=== PATIENT | male | born 1960 | race Caucasian/White ===

== ENCOUNTER 2016-07-15 06:43 | Emergency (ER) | payer OTHER ==
[~2016-07-15] VITALS: Ht 170.2 cm; Wt 96.2 kg
[~2016-07-15 06:43] MED LIST: ELIMITE5% TOP; IVERMECTIN TOP
[2016-07-15] MEDS ORDERED: METHADONE HCL10 M1 PO (07:00)
--- NOTE | 2016-07-15 07:19 | ED CARDIAC/CP/PALPITATIONS ---
History of Present Illness General Chief Complaint: Chest Pain Stated Complaint: "IM HAVING SEVERE CHEST PAIN" Source: patient, family, old records Exam Limitations: no limitations Vital Signs & Intake/Output Vital Signs & Intake/Output Vital Signs Date Time Temp Pulse Resp B/P Pulse O2 O2 Flow FiO2 Ox Delivery Rate 07/15 0809 93 07/15 0658 89 22 122/65 96 Room Air 07/15 0657 98.8 86 18 122/65 95 Room Air Allergies Coded Allergies: NO KNOWN ALLERGIES (07/15/16) Reconcile Medications Albuterol Sulfate (Proair Hfa) 90 MCG HFA.AER.AD 2 PUF INH Q4-6 PRN PRN PNEUMONIA Azithromycin (Zithromax) 250 MG TABLET 1 DP PO AD PNEUMONIA 2 the first day followed by 1 for days 2-5 Ivermectin (Sklice) 0.5% LOT 0 TOP SEE ADMIN CRITERIA lice Apply to hair, leave on for 10 minutes then wash. Repeat in 1 week. Methadone Hydrochloride (Methadone HCl) 10 MG TABLET 90 MG PO DAILY MMTP ( Reported) Permethrin (Elimite) 5% CRE 1 DAVID TOP ONCE SCABIES APPLY FROM NECK DOWN, RINSE OFF AFTER 8 HOURS. YOU CAN ALSO USE SHAMPOO, LEAVE IN FOR 10 MIN THEN RINSE OUT. Triage Note: PER PT 2 WEEKS OF CHEST PAIN WORSE WHEN LYING ON RT SIDE AT NIGHT "FEELS LIKE A BROKEN RIB" DENIES TRAUMA OR FALL. PT ON MMTP 90 MG LAST DOSED THIS AM AT [facility], [place], [facility] NO OTHER MED HX Triage Nurses Notes Reviewed? yes HPI: Patient presents with a 2 week history of sharp right-sided chest pain that increases with inspiration and coughing. Patient also has a productive cough. Patient has subjective fevers as well as chills. Patient has night sweats. There is no hemoptysis. Patient states that he has lost 5 pounds over the past month because of anorexia. Patient has a history of IVDA but is been on the methadone program and has not used anything IV within the past few years. Patient states that he has been tested for HIV and has been negative. Patient is a smoker. The sharp chest pain is constant and is exacerbated as noted above. There is no radiation. At its worst the pain is 8 out of 10. When he is not coughing or taking deep breaths the pain is 4 out of 10. Patient denies any orthopnea. Past History Travel History Traveled to [place] past 21 day No Medical History Any Pertinent Medical History? 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 No Review of Systems Review of Systems Constitutional: Reports: see HPI, weakness. EENTM: Reports: no symptoms. Respiratory: Reports: see HPI, cough. Cardiovascular: Reports: see HPI, chest pain. GI: Reports: see HPI. Genitourinary: Reports: no symptoms. Musculoskeletal: Reports: no symptoms. Skin: Reports: no symptoms. Neurological/Psychological: Reports: no symptoms. Hematologic/Endocrine: Reports: no symptoms. Immunologic/Allergic: Reports: no symptoms. All Other Systems: Reviewed and Negative Physical Exam Physical Exam General Appearance: well developed/nourished, alert, awake, moderate distress Head: atraumatic, normal appearance Eyes: Bilateral: PERRL, EOMI, other (1MM BILATERALLY). Ears, Nose, Throat: normal pharynx, normal ENT inspection, hearing grossly normal Neck: normal inspection, supple, full range of motion Respiratory: decreased breath sounds, rhonchi Cardiovascular: regular rate/rhythm, normal peripheral pulses Gastrointestinal: normal bowel sounds, soft, non-tender, no organomegaly Back: normal inspection, normal range of motion Extremities: normal inspection, normal capillary refill, normal range of motion Neurologic/Psych: no motor/sensory deficits, awake, alert, oriented x 3, normal mood/affect Skin: intact, normal color, warm/dry Lymphatic: no anterior cervical tony Core Measures ACS in differential dx? Yes ASA ordered for poss ACS? No-ACS ruled out Severe Sepsis Present: No Septic Shock Present: No Progress Differential Diagnosis: AMI, CHF/pulm edema, costochondritis, musculoskeletal pain, myocarditis, pericarditis, pneumonia, pneumothorax, pulmonary embolism Plan of Care: Orders Procedure Date/time Status TROPONIN LEVEL 07/15 0654 Complete PARTIAL THROMBOPLASTIN TIME 03/20 0654 Complete PROTHROMBIN TIME 07/15 653 Complete COMPREHENSIVE METABOLIC PANEL 07/15 653 Complete CBC WITHOUT DIFFERENTIAL 07/15 653 Complete EKG 07/16 643 Active Laboratory Tests 07/15/16 0727: Anion Gap 11, Estimated GFR > 60, BUN/Creatinine Ratio 13.6, Glucose 126 H, Calcium 9.1, Total Bilirubin 0.7, AST 22, ALT 30, Alkaline Phosphatase 142 H, Troponin I < 0.01, Total Protein 7.5, Albumin 3.2 L, Globulin 4.3 H, Albumin/ Globulin Ratio 0.7 L, PT 17.0 H, INR 1.63 H, APTT 39 H, CBC w Diff MAN DIFF ORDERED, RBC 3.51 L, MCV 85.8, MCH 28.4, RDW 13.1, MPV 7.6, Gran % 83.6 H, Lymphocytes % 8.0 L, Monocytes % 6.5, Eosinophils % 1.5, Basophils % 0.4, Absolute Granulocytes 13.1 H, Absolute Lymphocytes 1.2, Absolute Monocytes 1.0 H, Absolute Eosinophils 0.2, Absolute Basophils 0.1, Platelet Estimate VERIFIED BY SMEAR, Anisocytosis 1+, PUBS MCHC 33.1 Diagnostic Imaging: Viewed by Me: Radiology Read. Discussed w/RAD: Radiology Read. CXR Impression: PATIENT: VANESSA LI PRESENT AGE: 55 PATIENT ACCOUNT NO: [id number] : 56 LOCATION: [facility] ORDERING PHYSICIAN: LJ VANG MD SERVICE DATE: 07/15/16 EXAM TYPE: RAD - XRY- PORTABLE CHEST XRAY EXAMINATION: XR PORTABLE CHEST CLINICAL INFORMATION: Chest pain COMPARISON: None TECHNIQUE: Portable AP view of the chest was obtained. FINDINGS: There is a large area of airspace opacification in the mid to lower right lung peripherally with partial loss of the right hemidiaphragmatic contour. There is perceived mild fullness of the right hilum. The left lung appears clear. The cardiac silhouette is normal in size. No pneumothoraces are visualized. A small right pleural effusion is hard to exclude. No left-sided pleural effusion is imaged. The spine is not well visualized due to technique. Otherwise no acute osseous abnormalities are evident. IMPRESSION: Airspace opacification in the mid to lower right lung compatible with pneumonia. Mild right hilar fullness may reflect reactive adenopathy. However, follow-up after treatment is recommended to ensure resolution of these findings. DICTATED BY: LEANDER GAYLE MD DATE/TIME DICTATED:07/15/16736 LOOSELEAF BINDER COVERER:GIULIA DATE/TIME TRANSCRIBED:07/15/16736 CONFIDENTIAL, DO NOT COPY WITHOUT APPROPRIATE AUTHORIZATION. <Electronically signed in Other Vendor System> SIGNED BY: LEANDER GAYLE MD 07/15/1643 Initial ED EKG: SR, IVCD, NO ISCHEMIC CHANGES Departure Departure Disposition: HOME OR SELF CARE Condition: Stable Clinical Impression Primary Impression: Pneumonia Qualifiers: Pneumonia type: due to unspecified organism Laterality: right Lung location: lower lobe of lung Qualified Code: J18.1 - Lobar pneumonia, unspecified organism Referrals: ERIKA ARGUELLO,FAITH Wilcox (PCP/Family) Additional Instructions: TAKE ANTIBIOTICS PRESCRIBED USE INHALER NEEDED HAVE A REPEAT CHEST XRAY IN 6 WEEKS RETURN IF SYMPTOMS DO NOT IMPROVE OVER THE NEXT 2 DAYS CA SOON FOR ANY CONCERNS Departure Forms: Customer Survey General Discharge Information Prescriptions: Current Visit Scripts Azithromycin (Zithromax) 1 DP PO AD #6 TAB 2 the first day followed by 1 for days 2-5 Albuterol Sulfate (Proair Hfa) 2 PUF INH Q4-6 PRN PRN PNEUMONIA #1 INHAL Critical Care Note Critical Care Note Critical Care Time: non-applicable
[2016-07-15 07:40] LABS: ABSOLUTE BASOPHIL COUNT 0.1 /CUMM (0.0-0.2); ABSOLUTE EOSINOPHIL COUNT 0.2 /CUMM (0.0-0.7); ABSOLUTE GRANULOCYTE CT 13.1 /CUMM (1.4-6.5); ABSOLUTE LYMPH COUNT 1.2 /CUMM (1.2-3.4); BASOPHIL % 0.4 % (0.0-2.0); EOSINOPHIL % 1.5 % (0-5); GRANULOCYTE % 83.6 % (42.2-75.2); HEMATOCRIT 30.1 % (42-52); MEAN CORPUSCULAR HGB 28.4 PG (27.0-31.0); MEAN CORPUSCULAR HGB CONC 33.1 G/DL (33.0-37.0); MEAN CORPUSCULAR VOLUME 85.8 FL (80.0-94.0); MEAN PLATELET VOLUME 7.6 FL (7.4-10.4); PLATELET COUNT 527 /CUMM (130-400); RBC DISTRIBUTION WIDTH 13.1 % (11.5-14.5); RED BLOOD CELL CT 3.51 /CUMM (4.70-6.10); WHITE BLOOD CELL COUNT 15.7 /CUMM (4.8-10.8)
--- NOTE | 2016-07-15 07:43 | RADIOLOGY REPORT ---
EXAMINATION: XR PORTABLE CHEST CLINICAL INFORMATION: Chest pain COMPARISON: None TECHNIQUE: Portable AP view of the chest was obtained. FINDINGS: There is a large area of airspace opacification in the mid to lower right lung peripherally with partial loss of the right hemidiaphragmatic contour. There is perceived mild fullness of the right hilum. The left lung appears clear. The cardiac silhouette is normal in size. No pneumothoraces are visualized. A small right pleural effusion is hard to exclude. No left-sided pleural effusion is imaged. The spine is not well visualized due to technique. Otherwise no acute osseous abnormalities are evident. IMPRESSION: Airspace opacification in the mid to lower right lung compatible with pneumonia. Mild right hilar fullness may reflect reactive adenopathy. However, follow-up after treatment is recommended to ensure resolution of these findings.
[2016-07-15 08:16] LABS: PTT 39 SEC (25-37)
[2016-07-15] MEDS ORDERED: ZITHROMAX250 M2 PO (08:42)
[2016-07-15] MEDS ORDERED: PROAIR HFA8.5 GM INH (08:42)
[2016-07-15 09:07] VITALS: BP 100/64
== END 2016-07-15 09:47 ==
LOC: ERH 06:43
PROVIDERS: Pediatrics
DX: J18.9 Pneumonia, unspecified organism (principal); Z72.0 Tobacco use
CPT/HCPCS: 1426; 93005; 93010; 94644; 96374; 96375; J0456; J0696; J7040